=== PATIENT | male | born 1970 | race Asian ===

== ENCOUNTER 2020-03-18 19:19 | Emergency (ER) | payer OTHER ==
[~2020-03-18] VITALS: Ht 167.6 cm; Wt 71.4 kg
[2020-03-18 19:36] VITALS: BP 126/83
== END 2020-03-18 20:15 | disposition home or self-care (01) ==
LOC: EMS 19:19
DX: U07.1 COVID-19 (principal)
CPT/HCPCS: 99283; U0003